=== PATIENT | female | born 1975 | race Caucasian/White ===

== ENCOUNTER 2018-01-07 18:01 | Emergency (ER) | payer MEDICAID, OTHER ==
[2018-01-07 18:55] LABS: URINE BLOOD (Dip) POC Trace-intact (NEGATIVE); URINE GLUCOSE (Dip) POC Negative (NEGATIVE); URINE KETONES (Dip) POC Negative (NEGATIVE); URINE LEUKOCYTE EST (Dip) POC 1+ (NEGATIVE); URINE NITRITE (Dip) POC Negative (NEGATIVE); URINE TOTAL PROTEIN POC Negative (NEGATIVE)
[2018-01-07 18:55] LABS: URINE PH (Dip) POC 7.5 (5.0-8.5)
[2018-01-07 18:56] LABS: ADD MAN DIFF? NO
[2018-01-07] MEDS: MECLIZINE 12.5 MG TAB PO (18:57)
[2018-01-07 18:58] LABS: WHITE BLOOD COUNT 8.4 10^3/ul (4.8-10.8)
[2018-01-07 18:58] LABS: BASOPHILS % 0.5 % (0.0-2.0); EOSINOPHILS % 0.4 % (0.0-7.0); HEMOGLOBIN 11.9 g/dl (12.0-16.0); LYMPHOCYTES # 1.2 10^3/ul (0.8-2.9); LYMPHOCYTES % 14.1 % (15.0-51.0); MEAN CORPUSCULAR HEMOGLOBIN 27.9 pg (29.0-33.0); MEAN CORPUSCULAR VOLUME 82.2 fl (82.0-101.0); MEAN PLATELET VOLUME 10.1 fl (7.4-10.4); MONOCYTE # 0.4 10^3/ul (0.3-0.9); MONOCYTES % 5.2 % (0.0-11.0); NEUTROPHIL # 6.7 10^3/ul (1.6-7.5); NEUTROPHILS % 79.3 % (39.0-77.0); PLATELET COUNT 195 10^3/UL (140-415); RED BLOOD COUNT 4.26 10^6/ul (4.20-5.40); RED CELL DISTRIBUTION WIDTH 14.1 % (11.5-14.5)
[2018-01-07] MEDS: SOD CHLORIDE 0.9% 1,000 ML IV (18:58)
[2018-01-07] MEDS: ONDANSETRON (ODT) 4 MG TAB ODT (18:58)
[2018-01-07 19:17] LABS: ANION GAP 17 (8-16); BLOOD UREA NITROGEN 20 mg/dl (7-20); CALCIUM 9.7 mg/dl (8.4-10.2); CARBON DIOXIDE 25 mmol/L (21-31); CHLORIDE 98 mmol/L (97-110); CREATININE 1.01 mg/dl (0.44-1.00); GLUCOSE 138 mg/dl (70-220); POTASSIUM 3.1 mmol/L (3.5-5.1); SODIUM 137 mmol/L (135-144)
[2018-01-07] MEDS: POTASSIUM CHLORIDE (SR) 20 MEQ TAB PO (19:57)
[2018-01-07] MEDS: METOCLOPRAMIDE 10 MG INJ IV (20:46)
== END 2018-01-07 22:51 | disposition home or self-care (01) ==
LOC: FTE 22:51
DX: H81.10 Benign paroxysmal vertigo, unspecified ear (principal); E87.6 Hypokalemia
CPT/HCPCS: 70450; 80048; 81003; 81025; 85025; 93005; 96374; 99285-25

== ENCOUNTER 2018-10-07 16:39 | Emergency (ER) | payer MEDICAID ==
[2018-10-07] MEDS: METHOCARBAMOL 750 MG TAB PO (19:51)
[2018-10-07] MEDS: ONDANSETRON (ODT) 4 MG TAB ODT (19:51)
[2018-10-07] MEDS: KETOROLAC 30 MG INJ IM (19:53)
[2018-10-07] MEDS ORDERED: METOCLOPRAMIDE 10 MG TAB (21:04)
[2018-10-07] MEDS: METOCLOPRAMIDE 10 MG TAB PO (21:08)
== END 2018-10-07 21:13 | disposition home or self-care (01) ==
LOC: FTE 16:39
DX: R51 Headache (principal)
CPT/HCPCS: 81025; 96372; 99284-25